=== PATIENT | male | born 1960 | race Hispanic/Latino ===

== ENCOUNTER → 2025-01-13 | Day surgery (SDC) | payer BC ==
[2025-01-10 10:03] LABS: ANION GAP 15.3 mmol/L (8-16); CALCIUM 9.5 mg/dL (8.4-10.2); CREATININE, SERUM 0.79 mg/dL (0.72-1.25); POTASSIUM 4.3 mmol/L (3.5-5.1)
[~2025-01-13] MED LIST: ACETAMINOPHEN 1000 MG/100 ML 0 ML IV ONE; ACETAMINOPHEN 1000 MG/100 ML 100 ML IV ONE; ADVIL200 M1; ALLOPURINOL300 MG PO; ASPIRIN81 MG PO; BUPIVACAINE LIPOSOME/PF 266 MG/20 ML IJ ONE; EPHEDRINE SULFATE INJ 50 MG/ML VIAL ONE; FENTANYL CITRATE/PF 100MCG/2 ML INJ ONE; FINASTERIDE5 MG PO; FLOMAX0.4 MG PO; INDOCIN50 MG PO; LIDOCAINE HCL 2% LOCAL INJ 5 ML SDV VIAL INJ ONE; MELOXICAM7.5 MG PO; METOCLOPRAMIDE HCL 10 MG/2ML VIAL ONE; MIDAZOLAM HCL 2 MG/2 ML VIAL ONE; MULTI-VITAMIN1 EACH PO; OZEMPIC1 MG/0.71; PANTOPRAZOLE SO40 MG PO; PROPOFOL IV EMULSION 10 MG/ML 20 ML VIAL ONE; ROCURONIUM BROMIDE 1 ML IV ONE; SEVOFLURANE INHAL SOLN 250 ML PEN BTL ONE; SUCCINYLCHOLINE CHLORIDE 20 MG/ML 10ML VIAL ONE; TESTOSTERONE SHOT; TRIAMTERENE-HC1 EAC2 PO; TYLENOL EXTRA500 M2; ZESTRIL40 MG PO
[2025-01-13] MEDS: LACTATED RINGER'S 1,000 ML ONE (07:19)
[2025-01-13 10:15] VITALS: TEMP 97
[2025-01-13 10:50] VITALS: BP 129/71; PULSE 68; RESP 18; O2SAT 95
== END | disposition home or self-care (01) ==
LOC: OR 06:34
PROVIDERS: ATTEND Specialist
DX: M1A.0211 Idiopathic chronic gout, right elbow, with tophus (tophi) (principal); I10 Essential (primary) hypertension; E66.9 Obesity, unspecified; R00.1 Bradycardia, unspecified; Z01.810 Encounter for preprocedural cardiovascular examination; Z01.812 Encounter for preprocedural laboratory examination; Z79.02 Long term (current) use of antithrombotics/antiplatelets; Z79.82 Long term (current) use of aspirin; Z79.85 Long-term (current) use of injectable non-insulin antidiabetic drugs; Z79.1 Long term (current) use of non-steroidal anti-inflammatories (NSAID); Z79.899 Other long term (current) drug therapy
CPT/HCPCS: 24105; 36415; 80048; 88304; 93005; J0131; J0330; J0666; J0690; J2003; J2250; J2704; J2765; J3010; J7121

== ENCOUNTER 2025-01-14 06:57 | Emergency (ER) | payer BC ==
[~2025-01-14] VITALS: Ht 165.1 cm; Wt 91.6 kg
[~2025-01-14 06:57] MED LIST changes: -ACETAMINOPHEN 1000 MG/100 ML 0 ML IV ONE; -ACETAMINOPHEN 1000 MG/100 ML 100 ML IV ONE; -BUPIVACAINE LIPOSOME/PF 266 MG/20 ML IJ ONE; -EPHEDRINE SULFATE INJ 50 MG/ML VIAL ONE; -FENTANYL CITRATE/PF 100MCG/2 ML INJ ONE; -LIDOCAINE HCL 2% LOCAL INJ 5 ML SDV VIAL INJ ONE; -METOCLOPRAMIDE HCL 10 MG/2ML VIAL ONE; -MIDAZOLAM HCL 2 MG/2 ML VIAL ONE; -PROPOFOL IV EMULSION 10 MG/ML 20 ML VIAL ONE; -ROCURONIUM BROMIDE 1 ML IV ONE; -SEVOFLURANE INHAL SOLN 250 ML PEN BTL ONE; -SUCCINYLCHOLINE CHLORIDE 20 MG/ML 10ML VIAL ONE
[2025-01-14 07:18] VITALS: PULSE 64; RESP 18; TEMP 97.8
[2025-01-14 07:41] VITALS: BP 132/79; PULSE 64; RESP 18; O2SAT 95
== END 2025-01-14 07:52 | disposition home or self-care (01) ==
LOC: ER 07:02
DX: Z98.890 Other specified postprocedural states (principal); R60.9 Edema, unspecified; M79.89 Other specified soft tissue disorders; I10 Essential (primary) hypertension; M10.9 Gout, unspecified
CPT/HCPCS: 99282

== ENCOUNTER 2025-01-15 21:55 | Emergency (ER) | payer BC ==
[~2025-01-15] VITALS: Ht 165.1 cm; Wt 91.6 kg
[2025-01-15 22:05] VITALS: TEMP 98.7
[2025-01-15 22:49] LABS: BASOPHILS # (AUTO) 0.1 (0.0-0.1); BASOPHILS % 0.9 % (0.0-1.0); EOSINOPHILS # (AUTO) 0.2 (0.0-0.4); EOSINOPHILS % 1.4 % (0.0-6.0); HEMATOCRIT 50.8 % (38.2-49.6); HEMOGLOBIN 17.4 g/dL (14.0-18.0); LYMPHOCYTES # (AUTO) 3.2 (1.0-3.2); LYMPHOCYTES % 23.2 % (18.0-39.1); MEAN CORPUSCULAR HGB CONC 34.3 g/dL (31-35); MEAN CORPUSCULAR VOLUME 93.6 fL (81-99); MONOCYTES # (AUTO) 1.2 (0.2-0.8); MONOCYTES % 8.5 % (4.4-11.3); NEUTROPHILS # (AUTO) 9.1 (2.1-6.9); NEUTROPHILS % 65.1 % (38.7-80.0); PLATELET COUNT 242 x10e3/uL (140-360); RED BLOOD COUNT 5.43 x10e6/uL (4.3-5.7); RED CELL DISTRIBUTION WIDTH 12.9 % (11.7-14.4)
[2025-01-15 23:18] LABS: ALBUMIN 4.1 g/dL (3.5-5.0); ALBUMIN/GLOBULIN RATIO 1.2 (0.8-2.0); ANION GAP 19.1 mmol/L (8-16); BILIRUBIN,TOTAL 0.5 mg/dL (0.2-1.2); CALCIUM 9.5 mg/dL (8.4-10.2); CREATININE, SERUM 0.95 mg/dL (0.72-1.25); POTASSIUM 4.1 mmol/L (3.5-5.1); TOTAL PROTEIN 7.6 g/dL (6.5-8.1)
[2025-01-15 23:23] LABS: TROPONIN I 0.018 ng/mL (0-0.300)
[2025-01-15 23:26] LABS: CORONAVIRUS COVID-19 AG NEGATIVE (NEGATIVE); INFLUENZA A AG NEGATIVE (NEGATIVE); INFLUENZA B AG NEGATIVE (NEGATIVE)
[2025-01-15] MEDS ORDERED: IOPAMIDOL 370 MG/ML 100 ML INFUS..BTL INJ ONE (23:43)
[2025-01-16] MEDS: Morphine 4mg INJECTION 4 MG/ML INJ IV STA (01:35)
[2025-01-16] MEDS: ONDANSETRON HCL INJ 2MG/ML 2ML 2 MG/ML VIAL IV STA (01:36)
[2025-01-16] MEDS: DEXAMETHASONE SOD PHOS 10 MG/1 ML VIAL IV STA (01:56)
[2025-01-16 02:15] VITALS: PULSE 90; RESP 21
[2025-01-16 02:22] VITALS: BP 107/73; O2SAT 94
== END 2025-01-16 02:23 | disposition home or self-care (01) ==
LOC: ER 22:02
DX: R06.00 Dyspnea, unspecified (principal); M25.531 Pain in right wrist; I10 Essential (primary) hypertension; M10.9 Gout, unspecified; Z11.52 Encounter for screening for COVID-19; R94.31 Abnormal electrocardiogram [ECG] [EKG]
CPT/HCPCS: 29125; 36415; 71260; 73110; 80053; 80320; 82550; 83690; 83880; 84484; 85025; 87428; 93005; 99284; J1100; Q9967